=== PATIENT | male | born 1970 | race Caucasian/White ===

== ENCOUNTER 2020-01-15 18:26 | Emergency (ER) | payer MEDICAID, SELFPAY ==
[2020-01-15 18:44] VITALS: BP 122/72; BP 180/120; PULSE 75; PULSE 99; RESP 16; TEMP 36.8; O2SAT 100; O2SAT 97; BMI 33.0
--- NOTE | 2020-01-15 18:46 | ED.ALCOHOL ---
HPI - Alcohol General Chief Complaint: ETOH/Substance Use Stated Complaint: etoh Time Seen by Provider: 01/15/20 18:46 Source: patient and EMS Mode of arrival: EMS Limitations: no limitations History of Present Illness HPI narrative: 49 yo male drinking x 6 days, here with intoxication and made SI statements to daughter today, no prior SI attempts, family unsure of his actual intent, 911 called, he also drank so much that he didn't know where he was at one point today, no trauma reported or seen. MD complaint: alcohol intoxication Last drink: Hours (ago) Chronic alcohol use: Yes Previous visits for alcohol intoxication: No Recent trauma: No Associated symptoms: denies other symptoms Treatments prior to arrival: none Related Data Allergies Allergy/AdvReac Type Severity Reaction Status Date / Time No Known Allergies Allergy Verified 01/15/20 18:47 Review of Systems Review of Systems: Constitutional : No Fever, No Chills ENT/Mouth : No sore throat, No Rhinorrhea Eyes: No Eye Pain, No Swelling, No Redness Cardiovascular : No Chest Pain, No SOB Respiratory : No Cough, No Sputum Gastrointestinal : No Nausea, No Vomiting, No Diarrhea, No abdominal Pain Genitourinary : No Dysuria, No Hematuria Musculoskeletal : No joint pain, No Myalgias, No Joint Swelling Skin : No Skin Lesions, No rash Neuro : No Weakness, No Numbness Psych : No Anxiety, No Depression, No SI/HI/AH/VH Heme/Lymph: No Bruising, No Bleeding Endocrine : No Polyuria, No Polydipsia All other systems reviewed and are negative [facility] Past Medical History Medical History Depression Diabetes ETOH abuse Fatty liver 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 Oriented X3. No acute distress. + ETOH odor Eyes: Pupils equal, round and reactive to light. ENT: Pharynx normal. Neck: Normal inspection. Neck supple. CVS: Normal heart rate and rhythm. Pulses normal. Respiratory: No respiratory distress. Breath sounds normal. Abdomen: Soft and nontender. Skin: Skin warm and dry. Normal skin color. Normal skin turgor. Extremities: No lower extremity edema. No calf ttp Neuro: Oriented X 3. No motor deficit. No sensory deficit. Course Course Course Narrative: discussion with mother Gisel - need to talk to his daughter Cris discussion with daughter Cris [id number] - she states he has been drinking x 6 days, made SI statements to her today and told her he was going to kill himself patient threatened to leave section 12 due to ETOH and SI threats made at home, security was at bedside, patient able to be talked down PRN medications ordered, signed out pending [facility] MDM - Alcohol MDM Narrative Medical decision making narrative: 49 yo male with DM and alcoholism - made SI statements at home while intoxicated, refuses help at this time will obtain labs, and [facility] consult Lab Data Result diagrams: 01/15/20 19:16 01/15/20 19:16 Labs: Lab Results 01/15/20 01/15/20 01/15/20 Range/Units 19:16 19:16 19:16 WBC 9.2 (4.8-10.8) X10*3/uL RBC 4.43 L (4.60-5.80) X10*6/uL Hgb 12.9 L (14.0-18.0) g/dl Hct 39.1 L (42-52) % MCV 88.3 (80-98) fL MCH 29.1 (27.0-33.0) pg MCHC 33.0 (31.0-36.0) g/dl RDW 19.4 H (11.0-16.0) % Plt Count 126 L (160-400) X10*3/uL MPV 9.6 (9.4-12.4) fL Immature Gran % (Auto) 0.2 (0.0-0.4) % Neut % (Auto) 48.9 (45-73) % Lymph % (Auto) 38.7 (20-40) % Iron % (Auto) 9.3 (2-11) % Eos % (Auto) 1.4 (0-4) % Baso % (Auto) 1.5 (0-2) % Lymph # (Auto) 3.6 (1.2-4.9) X10*3/uL Iron # (Auto) 0.9 (0.1-1.2) X10*3/uL Eos # (Auto) 0.1 (0.0-0.4) X10*3/uL Baso # (Auto) 0.1 (0.0-0.2) X10*3/uL Abs Immat Gran (auto) 0.02 (0.00-0.03) X10*3/uL Absolute Neuts (auto) 4.5 (2.0-8.3) X10*3/uL Absolute Nucleated RBC 0.000 (0.0-0.012) X10*3/uL Nucleated RBC % (auto) 0.0 (0.0-0.2) /100WBC Smear Tech's Comments VERIFIED Sodium 143 (135-145) mmol/L Potassium 4.1 (3.3-5.1) mmol/l Chloride 106 (96-108) mmol/L Carbon Dioxide 28 (22-29) mmol/L Anion Gap 13 (12-20) BUN 3 L (9-16) mg/dL Creatinine 0.81 (0.5-1.4) mg/dL Estim Creat Clear Calc 132.4 Estimated GFR > 60 Random Glucose 143 H (60-115) mg/dL Calcium 7.9 L (8.4-10.2) mg/dL Magnesium 2.0 (1.6-2.6) mg/dL Total Bilirubin 1.8 H (0.0-1.0) mg/dL Direct Bilirubin 1.0 H (0.0-0.5) mg/dL AST 126 H (5-37) U/L ALT 34 (0-40) U/L Alkaline Phosphatase 157 H (39-117) U/L Total Protein 8.0 (6.5-8.0) g/dL Albumin 3.0 L (3.5-5.0) g/dL Ethyl Alcohol 328 H* mg/dL Discharge Plan Discharge Clinical Impression: Alcoholic intoxication Qualifiers: Complication of substance-induced condition: uncomplicated Qualified Code(s): F10.920 - Alcohol use, unspecified with intoxication, uncomplicated
[2020-01-15] MEDS: 0.9 % Sodium Chloride 1,000 ML 999 ML IVCONT (19:10)
[2020-01-15 19:33] LABS: Hemoglobin 12.9 g/dl (14.0-18.0); Imm Gran Abs Auto 0.02 X10*3/uL (0.00-0.03); Imm Gran Pct Auto 0.2 % (0.0-0.4); MANUAL DIFF FLAG SCAN; PLT CLUMP 1; Red Cell Distribution Width 19.4 % (11.0-16.0); SCAN SMEAR FLAG 1
[2020-01-15 19:35] LABS: Basophils Absolute Auto 0.1 X10*3/uL (0.0-0.2); Basophils Percent Auto 1.5 % (0-2); Eosinophils Absolute Auto 0.1 X10*3/uL (0.0-0.4); Eosinophils Percent Auto 1.4 % (0-4); Hematocrit 39.1 % (42-52); Lymphocytes Absolute Auto 3.6 X10*3/uL (1.2-4.9); Lymphocytes Percent Auto 38.7 % (20-40); Mean Corpuscular Hemoglobin 29.1 pg (27.0-33.0); Mean Corpuscular Volume 88.3 fL (80-98); Mean Platelet Volume 9.6 fL (9.4-12.4); Monocytes Absolute Auto 0.9 X10*3/uL (0.1-1.2); Monocytes Percent Auto 9.3 % (2-11); Neutrophils Absolute Auto 4.5 X10*3/uL (2.0-8.3); Neutrophils Percent Auto 48.9 % (45-73); Platelet Count 126 X10*3/uL (160-400); Red Blood Count 4.43 X10*6/uL (4.60-5.80); White Blood Count 9.2 X10*3/uL (4.8-10.8)
[2020-01-15 20:06] LABS: Ethanol 328 mg/dL
--- NOTE | 2020-01-15 20:09 | PC.NURSE ---
}per Dr. Chou who spoke w/ pts daughter, she reported pt made +SI statement [employer].Pt denies all SI/HI
[2020-01-15 20:15] LABS: Alanine Aminotransferase 34 U/L (0-40); Alkaline Phosphatase 157 U/L (39-117); Anion Gap 13 (12-20); Aspartate Amino Transferase 126 U/L (5-37); Bilirubin Total 1.8 mg/dL (0.0-1.0); Blood Urea Nitrogen 3 mg/dL (9-16); Calcium 7.9 mg/dL (8.4-10.2); Carbon Dioxide 28 mmol/L (22-29); Chloride 106 mmol/L (96-108); Creatinine Clr Calc Pharmacy 132.4; Estimated Glomerular Filt Rate > 60; Glucose Random 143 mg/dL (60-115); Potassium 4.1 mmol/l (3.3-5.1); Sodium 143 mmol/L (135-145)
--- NOTE | 2020-01-15 20:15 | PC.NURSE ---
faxed and called to [facility].
[2020-01-15 20:29] LABS: SLIDE REVIEW VERIFIED
[2020-01-15 20:42] VITALS: BP 154/90; PULSE 104; RESP 18; TEMP 36.7; O2SAT 98
[2020-01-15] MEDS: diphenhydrAMINE HCL 25 MG TABLET 50 MG PO (20:46)
[2020-01-15] MEDS: LORazepam 1 MG TABLET 2 MG PO (20:46)
[2020-01-15] MEDS: Acetaminophen 325 MG TABLET 650 MG PO (20:46)
--- NOTE | 2020-01-15 21:00 | PC.NURSE ---
Pt became agitated when explained he must wait for [facility] eval before d/c, explained reasons why, staffing and family concerns. Pt disagreeing, explained section 8, pt states Well one way or another I am not staying in this hospital tonight , explained consequences of action if pt attempted to leave. Dr. Chou also at bedside. After several attempts to explain process and potential consequences, pt reluctant to chart changer into hospital attire with security. Pt tearful at times. Continues to deny si/hi
--- NOTE | 2020-01-15 23:52 | PC.NURSE ---
RYAN faxed/called/spoke with Dany/confirmed receipt of referral. Patient will be seen in the morning.
--- NOTE | 2020-01-16 02:01 | PC.NURSE ---
Patient in bed appears sleeping, no distress observed/reported, respiration +/=/non-labored bilaterally. Will continue to monitor.
[2020-01-16 06:39] VITALS: BP 122/76; PULSE 102; RESP 18; TEMP 37.1; O2SAT 96
--- NOTE | 2020-01-16 06:46 | PC.NURSE ---
Patient alert and oriented, pleasant, provided urine sample for GLOVER, pharmacy called for help fix Humalog order/with no luck. POC 122. Will continue to monitor.
[2020-01-16 06:55] LABS: Glucose, Whole Blood 122 mg/dL (60-115)
--- NOTE | 2020-01-16 07:20 | PC.NURSE ---
Report received from LISANDRO Ferrara. Pt resting, resp unlabored.
[2020-01-16 08:00] VITALS: BP 125/97; PULSE 110; RESP 22; O2SAT 95
[2020-01-16 08:07] LABS: Amphetamine Screen Urine Not Detected (Not Detect); Barbiturates, Urine Not Detected (Not Detect); Benzodiazepines Screen Urine Not Detected (Not Detect); Cannabinoid Screen Urine POSITIVE (Not Detect); Cocaine Screen Urine Not Detected (Not Detect); Opiate Screen Urine Not Detected (Not Detect); Phencyclidine Screen Urine Not Detected (Not Detect)
[2020-01-16] MEDS: LORazepam 1 MG TABLET 2 MG PO (08:56)
--- NOTE | 2020-01-16 09:48 | PC.NURSE ---
[facility] in evaluating pt
[2020-01-16 10:23] VITALS: BP 135/94; PULSE 109; RESP 18; O2SAT 98
[2020-01-16] MEDS: Finasteride 5 MG TABLET PO (11:35)
== END 2020-01-16 11:47 | disposition home or self-care (01) ==
PROVIDERS: Emergency Provider Emergency Medicine; PCP Hospitalist
DX: F10.220 Alcohol dependence with intoxication, uncomplicated (principal); Y90.8 Blood alcohol level of 240 mg/100 ml or more; R00.0 Tachycardia, unspecified; F32.9 Major depressive disorder, single episode, unspecified; K70.2 Alcoholic fibrosis and sclerosis of liver; E11.9 Type 2 diabetes mellitus without complications; F17.200 Nicotine dependence, unspecified, uncomplicated; Z79.4 Long term (current) use of insulin; Z79.899 Other long term (current) drug therapy
CPT/HCPCS: 36415; 80048; 80076; 80307; 80320; 82947; 83735; 85025; 99284; 99285; Q0163

== ENCOUNTER 2020-03-29 12:37 | Emergency (ER) | payer MEDICAID, SELFPAY ==
[2020-03-29 12:40] VITALS: BP 163/86; PULSE 130; RESP 18; TEMP 36.8; O2SAT 95; BMI 33.0
--- NOTE | 2020-03-29 13:09 | ECG_ITS ---
Test Reason : CHECK CARDIAC STATUS Blood Pressure : / mmHG Vent. Rate : 100 BPM Atrial Rate : 100 BPM P-R Int : 160 ms QRS Dur : 094 ms QT Int : 386 ms P-R-T Axes : 010 -07 -07 degrees QTc Int : 497 ms Normal sinus rhythm Moderate voltage criteria for LVH, may be normal variant Poor R wave progression Prolonged QT Abnormal ECG No previous ECGs available Referred By: Maury Arias Electronically Signed By:Yaya Marie
--- NOTE | 2020-03-29 13:13 | ED.PSYCH ---
HPI - Psych General Chief Complaint: Psychiatric Symptoms Stated Complaint: crisis,etoh Time Seen by Provider: 03/29/20 16:02 Source: patient Mode of arrival: ambulatory Limitations: no limitations History of Present Illness HPI Narrative: Patient presents to ED for alcohol binge drinking and soft SI statements. Patient states he has suicidal thoughts earlier in the morning, but patient denies any suicidal thoughts. Patient states he wants detox. Patient states last drink was 4 hours ago and now is having tremors and vomiting. PATIENT STATES HE HAS NO PLAN TO KILL HIMSELF BECAUSE HE HAS CHILDREN. Related Data Home Medications Medication Instructions Recorded Confirmed Humalog U-100 Insulin See Protocol SUBCUT TIDWMEAL 01/16/20 01/16/20 Lantus U-100 Insulin 20 units SUBCUT BEDTIME 01/16/20 01/16/20 citalopram 10 mg PO DAILY 01/16/20 01/16/20 finasteride 5 mg PO DAILY 01/16/20 01/16/20 sertraline 200 mg PO DAILY 01/16/20 01/16/20 Allergies Allergy/AdvReac Type Severity Reaction Status Date / Time No Known Allergies Allergy Verified 03/29/20 12:40 Review of Systems Review of Systems: Yes all other systems are reviewed and are negative Constitutional: Constitutional: Reports as per HPI and Reports no additional constitutional complaints Eyes: Eyes: Reports as per HPI and Reports no additional eye complaints ENT: Reports system reviewed and no additional complaints, except as documented and Reports as per HPI Cardiovascular: Cardiovascular: Reports as per HPI and Reports no additional cardiovascular complaints Respiratory: Respiratory: Reports as per HPI and Reports no additional respiratory complaints Gastrointestinal: Gastrointestinal: Reports as per HPI and Reports no additional gastrointestinal complaints Genitourinary: Genitourinary: Reports no additional male genitourinary complaints and Reports as per HPI Musculoskeletal: Musculoskeletal: Reports no additional musculoskeletal complaints and Reports as per HPI Neurologic: Reports system reviewed and no additional complaints, except as documented and Reports as per HPI Psychiatric: Psychiatric: Reports no additional psychiatric complaints and Reports as per HPI PMFSH Past Medical History Medical History Depression Diabetes ETOH abuse Fatty liver 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 Pectoralis muscle strain Social History Social History Alcohol intake: current Alcohol intake frequency: 3 or more drinks per day Alcohol type: beer and hard liquor Smoking Status: Current some day smoker Use of substances other than those prescribed or required for medical reasons: No Advance Directives: No Advance Directives Information Provided: Yes Physical Exam Vital Signs: Vital Signs: Last Vital Signs Temp 98.3 F 03/29/20 12:40 Pulse 99 03/29/20 16:01 Resp 16 03/29/20 16:01 BP 136/88 03/29/20 16:01 Pulse Ox 96 03/29/20 16:01 Body Mass Index 33.0 Const: Orientation/consciousness: patient oriented x3 HENMT: Head: Yes normal to inspection and Yes No palpable skull fracture present Eyes: General: appearance normal, both eyes and all related structures Neck: Neck: Yes normal visual inspection, Yes full ROM, Yes no lymphadenopathy, Yes no meningeal signs, Yes trachea midline, Yes supple and No tender Chest: Chest palpation & inspection: normal inspection of the chest and normal palpation of entire chest wall Resp: Effort & Inspection: normal respiratory effort and able to speak in complete sentences Auscultation: clear to auscultation bilaterally Cardio: Jugular venous distension: no JVD Heart sounds: S1 normal heart sound present and S2 normal heart sound present GI: Inspection: No normal to inspection and No abdominal wall ecchymosis Palpation (GI): Soft to palpation, not firm, nontender, no guarding and not rigid : General: No CVA tenderness and Yes no CVA tenderness Back/Spine/Pelvis: Back: no CVA tenderness, No CVA tenderness and No back tenderness Skin: General skin exam: no rashes or lesions noted and elasticity normal Neuro: Other: Positive for upper extremity tremors from alcohol withdrawal. Negative for any neuro deficit General: patient oriented x3, gait normal, no meningeal signs and CN's II-XI intact bilaterally Cranial nerves: Yes CN's II-XII intact bilaterally Extrem: Other: Positive for upper extremity tremors Psych: Appearance: grossly normal, well kempt and not disheveled Course Course Course Narrative: Due to patient being hypertensive, tachycardic, and having tremors. Clinical pictures alcohol withdrawal. Patient have labs, EKG, IV fluids, and normal saline. Reevaluation(s) Reevaluation #1: PATIENT VITAL SIGNS IMPROVED AFTER RECEIVING FLUIDS AND ATIVAN. PATIENT EKG DOES NOT SHOW ATRIAL FIBRILLATION. PATIENT'S LFTS ARE CHRONICALLY ELEVATED DUE TO ALCOHOL ABUSE. PATIENT NO LONGER TREMULOUS. CARE TEAM CONSULTED FARHEEN EVALUATED PATIENT RECOMMEND PATIENT BE SEEN BY IN FOR POSSIBLE EATS BEDS FOR ALCOHOL ABUSE AND DEPRESSION. Case signed out to DANTE Kumar. Time: 16:14 MDM - Psych MDM Narrative Medical decision making narrative: ALCOHOL ABUSE. SLIGHT DEPRESSION. Restraints Face to Face Assessment: Face to Face Assessment: Current Situation: After assessment of the patient, a review of the pertinent medical record and a discussion with nursing staff, I feel the patient requires a restrain intervention. Reaction To: [] Medical Condition: [] Behavioral State: [] Continued Need: [] Lab Data Result diagrams: 03/29/20 14:02 03/29/20 14:02 Labs: Lab Results 03/29/20 03/29/20 03/29/20 Range/Units 14:02 14:02 14:02 WBC 7.6 (4.8-10.8) X10*3/uL RBC 4.81 (4.60-5.80) X10*6/uL Hgb 14.1 (14.0-18.0) g/dl Hct 42.8 (42-52) % MCV 89.0 (80-98) fL MCH 29.3 (27.0-33.0) pg MCHC 32.9 (31.0-36.0) g/dl RDW 20.9 H (11.0-16.0) % Plt Count 98 L (160-400) X10*3/uL MPV 10.4 (9.4-12.4) fL Immature Gran % (Auto) 0.4 (0.0-0.4) % Neut % (Auto) 56.7 (45-73) % Lymph % (Auto) 31.6 (20-40) % Faulk % (Auto) 9.0 (2-11) % Eos % (Auto) 0.3 (0-4) % Baso % (Auto) 2.0 (0-2) % Lymph # (Auto) 2.4 (1.2-4.9) X10*3/uL Faulk # (Auto) 0.7 (0.1-1.2) X10*3/uL Eos # (Auto) 0.0 (0.0-0.4) X10*3/uL Baso # (Auto) 0.2 (0.0-0.2) X10*3/uL Abs Immat Gran (auto) 0.03 (0.00-0.03) X10*3/uL Absolute Neuts (auto) 4.3 (2.0-8.3) X10*3/uL Absolute Nucleated RBC 0.000 (0.0-0.012) X10*3/uL Nucleated RBC % (auto) 0.0 (0.0-0.2) /100WBC Smear Tech's Comments VERIFIED PT 20.1 H (10.8-13.0) SEC INR 1.7 H (0.9-1.1) APTT 41.4 H (24.1-38.0) SEC Sodium 141 (135-145) mmol/L Potassium 3.8 (3.3-5.1) mmol/l Chloride 103 (96-108) mmol/L Carbon Dioxide 27 (22-29) mmol/L Anion Gap 15 (12-20) BUN 4 L (9-16) mg/dL Creatinine 0.97 (0.5-1.4) mg/dL Estim Creat Clear Calc 110.6 Estimated GFR > 60 Random Glucose 166 H (60-115) mg/dL Calcium 8.0 L (8.4-10.2) mg/dL Magnesium 1.9 (1.6-2.6) mg/dL Total Bilirubin 2.5 H (0.0-1.0) mg/dL Direct Bilirubin 1.4 H (0.0-0.5) mg/dL AST 157 H (5-37) U/L ALT 45 H (0-40) U/L Alkaline Phosphatase 221 H D (39-117) U/L Total Protein 8.9 H (6.5-8.0) g/dL Albumin 3.3 L (3.5-5.0) g/dL Lipase 50 (8-78) U/L Ethyl Alcohol mg/dL 03/29/20 Range/Units 14:02 WBC (4.8-10.8) X10*3/uL RBC (4.60-5.80) X10*6/uL Hgb (14.0-18.0) g/dl Hct (42-52) % MCV (80-98) fL MCH (27.0-33.0) pg MCHC (31.0-36.0) g/dl RDW (11.0-16.0) % Plt Count (160-400) X10*3/uL MPV (9.4-12.4) fL Immature Gran % (Auto) (0.0-0.4) % Neut % (Auto) (45-73) % Lymph % (Auto) (20-40) % Faulk % (Auto) (2-11) % Eos % (Auto) (0-4) % Baso % (Auto) (0-2) % Lymph # (Auto) (1.2-4.9) X10*3/uL Faulk # (Auto) (0.1-1.2) X10*3/uL Eos # (Auto) (0.0-0.4) X10*3/uL Baso # (Auto) (0.0-0.2) X10*3/uL Abs Immat Gran (auto) (0.00-0.03) X10*3/uL Absolute Neuts (auto) (2.0-8.3) X10*3/uL Absolute Nucleated RBC (0.0-0.012) X10*3/uL Nucleated RBC % (auto) (0.0-0.2) /100WBC Smear Tech's Comments PT (10.8-13.0) SEC INR (0.9-1.1) APTT (24.1-38.0) SEC Sodium (135-145) mmol/L Potassium (3.3-5.1) mmol/l Chloride (96-108) mmol/L Carbon Dioxide (22-29) mmol/L Anion Gap (12-20) BUN (9-16) mg/dL Creatinine (0.5-1.4) mg/dL Estim Creat Clear Calc Estimated GFR Random Glucose (60-115) mg/dL Calcium (8.4-10.2) mg/dL Magnesium (1.6-2.6) mg/dL Total Bilirubin (0.0-1.0) mg/dL Direct Bilirubin (0.0-0.5) mg/dL AST (5-37) U/L ALT (0-40) U/L Alkaline Phosphatase (39-117) U/L Total Protein (6.5-8.0) g/dL Albumin (3.5-5.0) g/dL Lipase (8-78) U/L Ethyl Alcohol 215 mg/dL ECG Data Interpretation: NORMAL SINUS RHYTHM. MODERATE VOLTAGE LVH. VENTRICULAR RATE 100. FL INTERVAL 160. QRS 94. QTC 497. NEGATIVE STEMI Discharge Plan Discharge Clinical Impression: Alcohol abuse Prescriptions: No Action citalopram 10 mg tablet 10 mg PO DAILY RF: 0 sertraline 100 mg tablet 200 mg PO DAILY RF: 0 finasteride 5 mg tablet 5 mg PO DAILY RF: 0 Humalog U-100 Insulin 100 unit/ml See Protocol unit subcut TIDWMEAL RF: 0 Lantus U-100 Insulin 100 unit/ml 20 units subcut BEDTIME RF: 0
[2020-03-29 14:15] LABS: Hematocrit 42.8 % (42-52); MANUAL DIFF FLAG SCAN; PLT CLUMP 1; Red Blood Count 4.81 X10*6/uL (4.60-5.80); SCAN SMEAR FLAG 1
[2020-03-29] MEDS: 0.9 % Sodium Chloride 1,000 ML 999 ML IV ×2 (14:15)
[2020-03-29] MEDS: ondansetron HCL 4 MG/2 ML VIAL IVPUSH (14:15)
[2020-03-29] MEDS: LORazepam 2 MG/ML VIAL IVPUSH (14:15)
[2020-03-29 14:17] LABS: Basophils Absolute Auto 0.2 X10*3/uL (0.0-0.2); Eosinophils Percent Auto 0.3 % (0-4); Hemoglobin 14.1 g/dl (14.0-18.0); Imm Gran Abs Auto 0.03 X10*3/uL (0.00-0.03); Imm Gran Pct Auto 0.4 % (0.0-0.4); Lymphocytes Absolute Auto 2.4 X10*3/uL (1.2-4.9); Lymphocytes Percent Auto 31.6 % (20-40); Mean Corpuscular HGB Conc 32.9 g/dl (31.0-36.0); Mean Corpuscular Hemoglobin 29.3 pg (27.0-33.0); Mean Platelet Volume 10.4 fL (9.4-12.4); Monocytes Absolute Auto 0.7 X10*3/uL (0.1-1.2); Neutrophils Absolute Auto 4.3 X10*3/uL (2.0-8.3); Neutrophils Percent Auto 56.7 % (45-73); Red Cell Distribution Width 20.9 % (11.0-16.0); White Blood Count 7.6 X10*3/uL (4.8-10.8)
[2020-03-29 14:22] LABS: INTERNATIONAL NORM RATIO 1.7 (0.9-1.1); Prothrombin Time 20.1 SEC (10.8-13.0)
[2020-03-29 14:25] LABS: Partial Thromboplastin Time 41.4 SEC (24.1-38.0)
[2020-03-29 14:39] LABS: Platelet Count 98 X10*3/uL (160-400); SLIDE REVIEW VERIFIED
[2020-03-29 14:43] LABS: Ethanol 215 mg/dL
[2020-03-29 14:45] VITALS: BP 135/83; PULSE 100; RESP 18; O2SAT 95
[2020-03-29 14:49] LABS: Alanine Aminotransferase 45 U/L (0-40); Albumin Level 3.3 g/dL (3.5-5.0); Alkaline Phosphatase 221 U/L (39-117); Anion Gap 15 (12-20); Aspartate Amino Transferase 157 U/L (5-37); Bilirubin Direct 1.4 mg/dL (0.0-0.5); Bilirubin Total 2.5 mg/dL (0.0-1.0); Blood Urea Nitrogen 4 mg/dL (9-16); Carbon Dioxide 27 mmol/L (22-29); Chloride 103 mmol/L (96-108); Creatinine Clr Calc Pharmacy 110.6; Estimated Glomerular Filt Rate > 60; Glucose Random 166 mg/dL (60-115); Lipase 50 U/L (8-78); Magnesium 1.9 mg/dL (1.6-2.6); Potassium 3.8 mmol/l (3.3-5.1); Sodium 141 mmol/L (135-145); Total Protein 8.9 g/dL (6.5-8.0)
--- NOTE | 2020-03-29 15:56 | MHC.CARE ---
CARE Team consult RE: crisis screening This chief writer met with the 49 year old Danish speaking male who presented to [facility] ED due to etoh and SI statements. This chief writer met with patient to discuss the circumstances that prompted his ED visit. Patient reports he has been on a jenkins and has been consuming large amounts of alcohol. Patient reports suicidal thoughts however denies intent or means. Patient reports depression and an interest in getting back on antidepressants. Patient will to go to detox and also willing to remain in the hospital until a bed becomes available. Patient reports he has custody of his youngest children and he wants to be there for them. Discussed case with patient's ED provider and recommended a N eval for possible EATS placement.
[2020-03-29 16:01] VITALS: BP 136/88; PULSE 99; RESP 16; O2SAT 96
--- NOTE | 2020-03-29 16:20 | PC.NURSE ---
report given to aaliyah. CIWA of 0 Prior to moving to Pod. Patient calm and compliant.
--- NOTE | 2020-03-29 16:29 | PC.NURSE ---
Report recieved. PT ambulated to pod with steady gait, calm and cooperative, denies complaints at this time. Pt to see RYAN.
[2020-03-29 17:17] VITALS: BP 142/84; PULSE 102; TEMP 37; O2SAT 95
--- NOTE | 2020-03-29 17:33 | PC.NURSE ---
RYAN faxed and called, confirmed with hans
--- NOTE | 2020-03-29 17:45 | PC.NURSE ---
DINNER TRAY GIVEN.
--- NOTE | 2020-03-29 19:25 | PC.NURSE ---
Report received. PT is sitting in his room eating a sandwich. Waiting to be seen by N.
[2020-03-29 23:04] VITALS: BP 138/73; PULSE 104; RESP 17; TEMP 37; O2SAT 95
--- NOTE | 2020-03-30 00:43 | PC.NURSE ---
BHN at bed side.
--- NOTE | 2020-03-30 05:13 | PC.NURSE ---
BHN is going to complete assessment and then refer the PT to [facility] for alcohol detox. PT is agreeing to plan.
[2020-03-30 06:44] VITALS: BP 144/100; PULSE 88; RESP 17; TEMP 37.3; O2SAT 96
[2020-03-30 07:12] LABS: Glucose, Whole Blood 114 mg/dL (60-115)
[2020-03-30] MEDS: chlordiazePOXIDE HCl 5 MG CAPSULE 10 MG PO (07:17)
[2020-03-30 09:21] VITALS: RESP 16
--- NOTE | 2020-03-30 10:55 | MHC.CARE ---
10:50 Call from [facility] [phone]. Patient has been accepted to the facility for 1200 (that can be changed depending on transportation) Accepting MD is Dr. Abraham [address] [place] [address], [place] They do accept ambulances
--- NOTE | 2020-03-30 12:00 | MHC.RECOVSUP ---
Recovery Support note: Patient accepted to [facility] for EATS. Offered patient taxi/Lyft and patient declined, stating his daughter will be able to take him. Patient provided with information for facility and was discharged.
== END 2020-03-30 11:50 | disposition home or self-care (01) ==
PROVIDERS: Physician Assistant; Emergency Provider Emergency Medicine; PCP Hospitalist
DX: F10.10 Alcohol abuse, uncomplicated (principal); Y90.7 Blood alcohol level of 200-239 mg/100 ml; E11.9 Type 2 diabetes mellitus without complications; Z79.4 Long term (current) use of insulin; K70.2 Alcoholic fibrosis and sclerosis of liver; K76.0 Fatty (change of) liver, not elsewhere classified; F17.200 Nicotine dependence, unspecified, uncomplicated
CPT/HCPCS: 36415; 80053; 80076; 80320; 82248; 82947; 83690; 83735; 85025; 85610; 85730; 93005; 96361; 96374; 96375; 99285; J2060; J2405